=== PATIENT | male | born 1965 | race Caucasian/White ===

== ENCOUNTER → 2016-08-10 | Outpatient (CLI) | payer OTHER ==
[~2016-08-10] MED LIST: KEFLEX 500MG.500 MG PO; MOTRIN800 MG PO
[2016-08-10 14:50] LABS: HEMOGLOBIN 16.4 g/dL (14.1-18.0); LYMPH # 1.7 K/mm3 (0.7-4.5); LYMPH % 27.2 % (10-50)
[2016-08-10 16:19] LABS: BUN 12 mg/dL (7-18)
[2016-08-10 16:23] LABS: GFR (ESTIMATED) 71 ML/MIN (>60)
[2016-08-12 08:40] LABS: Iron 105 ug/dL (38-169); Iron Saturation 27 % (15-55); UIBC 288 ug/dL (111-343); Vitamin D, 25-Hydroxy 14.8 ng/mL (30.0-100.0)
[2016-08-14 18:40] LABS: Saccharomyces cerevisiae, IgA 121.2 Units (0.0-24.9); Saccharomyces cerevisiae, IgG 74.9 Units (0.0-24.9)
== END ==
LOC: LAB 14:24
PROVIDERS: Nurse Practitioner Acute Care
DX: K50.80 Crohn's disease of both small and large intestine without complications (principal)